=== PATIENT | female | born 1970 | race Caucasian/White ===

== ENCOUNTER 2024-09-12 08:31 | Outpatient (CLI) | payer OTHER, SELFPAY | END 2024-09-12 08:32 | disposition home or self-care (01) | PROVIDERS: PCP Registered Nurse; Visit Provider Registered Nurse | DX: Z13.228 Encounter for screening for other metabolic disorders (principal); Z13.220 Encounter for screening for lipoid disorders; Z13.29 Encounter for screening for other suspected endocrine disorder | CPT/HCPCS: 80053; 80061; 84443 ==

== ENCOUNTER 2025-06-04 16:20 | Outpatient (CLI) | payer OTHER, SELFPAY ==
--- NOTE | 2025-06-04 16:45 | CRLHL7_ITS ---
For Patients: As a result of the Century Cures Act, medical imaging exams and procedure reports are released immediately into your electronic medical record. You may view this report before your referring provider. If you have questions, please contact your health care provider. INDICATION: Cyst right-sided of neck. TECHNIQUE: Routine CT images of the neck are obtained from the level of the orbits to the superior mediastinum during infusion of 69 cc of Isovue-370 contrast. Multiplanar reconstructions were obtained. FINDINGS: The included paranasal sinuses are clear. There is convex left nasal septal curvature. The posterior nasal fossa and nasopharynx and oropharynx are otherwise unremarkable. Metallic artifacts from dental amalgam. The tongue base, epiglottis, hypopharynx, larynx and subglottic trachea are unremarkable. Thyroid gland not enlarged. There are postoperative changes of anterior cervical fusion at the C5-6 level with metallic plate and anchoring screws. There are on metallic hemostasis clips in the right anterolateral neck. The there are few scattered subcentimeter in (normal size) lymph nodes in the upper jugular and posterior triangle lymph node chains. Two similar, normal size lymph nodes in the right supraclavicular fossa. However, no dominant soft tissue mass or worrisome lymphadenopathy seen. IMPRESSION: 1. Postoperative changes as described. 2. No dominant mass/cyst or worrisome pathologic lymphadenopathy is seen in the neck at this time. Please note that all CT scans at this facility use dose modulation, iterative reconstruction, and/or weight-based dosing when appropriate to reduce radiation dose to as low as reasonably achievable. Dictated by Gino Mota MD @ 06/05/2025 9:58:43 AM (Electronically Signed)
== END 2025-06-04 16:21 | disposition home or self-care (01) ==
LOC: CT 16:20
PROVIDERS: PCP Internal Medicine; Visit Provider Internal Medicine
DX: R22.1 Localized swelling, mass and lump, neck (principal); Z98.1 Arthrodesis status; Z98.890 Other specified postprocedural states; J34.89 Other specified disorders of nose and nasal sinuses
CPT/HCPCS: 70491; Q9967